=== PATIENT | male | born 1980 | race Caucasian/White ===

== ENCOUNTER 2023-01-16 20:12 | Emergency (ER) | payer SELFPAY ==
[2023-01-16] MEDS ORDERED: Clindamycin HCl 150 MG Cap PO STA (21:26)
== END 2023-01-16 21:38 | disposition home or self-care (01) ==
LOC: MW.ED 20:12
DX: L03.211 Cellulitis of face (principal); J45.909 Unspecified asthma, uncomplicated
CPT/HCPCS: 99282; A9270; 99283